=== PATIENT | female | born 1955 | race Caucasian/White ===

== ENCOUNTER → 2017-06-23 13:16 | Outpatient (CLI) | payer OTHER, SELFPAY | PROVIDERS: Family Provider Family Medicine; PCP Family Medicine; Visit Provider Internal Medicine Pulmonary Disease | DX: R05 Cough (principal); R06.00 Dyspnea, unspecified | CPT/HCPCS: 87804 ==

== ENCOUNTER → 2017-09-17 07:44 | Outpatient (CLI) | payer OTHER, SELFPAY ==
--- NOTE | 2017-09-17 07:51 | CT_ITS ---
STUDY: CT CHEST WITHOUT CONTRAST REASON FOR EXAM: Female, 62 years old. The patient has a history of sarcoidosis. Lung lung nodule. RADIATION DOSAGE (If Supplied By Facility): CTDIvol = ( 14.36 ) mGy, DLP = ( 441.26 ) mGycm TECHNIQUE: Transaxial imaging was performed without the administration of intravenous contrast material. Multiplanar coronal and sagittal images were reformatted. Individualized dose optimization techniques were used for this CT. COMPARISON: None. FINDINGS: There is volume loss with scarring and/or infiltration in the medial aspect of the right middle lobe. Mild degree of a groundglass appearance in the posterior aspect of the lingular segment of the left upper lobe. Mild increased markings in the lower lobe suggestive of scarring. There is also evidence of mild bronchiectasis at both lung bases slightly more prominent on the right side. There is no demonstrated pleural abnormality. Normal heart and pericardium. There are multiple small lymph nodes within the mediastinum, which are normal in size and morphology most compatible with reactive lymph hyperplasia. Slight prominence of the right hilar lymph nodes. Normal unenhanced pulmonary arteries. Normal aorta arch and descending thoracic aorta. There are multi-level degenerative changes of the thoracic spine. There is no demonstrated abnormality of the visualized upper abdomen. CT/Chest without Contrast IMPRESSION: Spondylolysis and probable scarring in the right middle lobe with mild increased markings in the lingular segment of the left upper lobe. Findings suggestive of mild scarring at both lung bases. Electronically Signed: Masood Adames MD at 12:54 EDT Tel [phone], Service support ,
== END ==
PROVIDERS: Family Provider Family Medicine; PCP Family Medicine; Visit Provider Internal Medicine Pulmonary Disease
DX: R91.1 Solitary pulmonary nodule (principal)
CPT/HCPCS: 71250

== ENCOUNTER → 2017-12-21 08:38 | Outpatient (CLI) | payer OTHER, SELFPAY ==
--- NOTE | 2017-12-21 08:43 | ECHOD_ITS ---
Reason For Study: DYSPNEA Procedure This was a 2D Doppler, Color Flow transthoracic echocardiogram. The exam was of adequate technical quality. Exam performed in department. Left Ventricle Normal LV size. Left ventricular systolic function is normal. The estimated ejection fraction is 60 %. No evidence for diastolic dysfunction. No regional wall motion abnormalities noted. Right Ventricle Normal RV size. Normal systolic function. Atria The left atrium is mildly enlarged. Normal right atrium. No doppler evidence for ASD. Mitral Valve There is no mitral annular calcification. Normal mitral valve. Mild (1+) mitral valve insufficiency. Tricuspid Valve Normal tricuspid valve. Trivial tricuspid valve insufficiency. Right ventricular systolic pressure estimated to be 21 mmHg. Aortic Valve Trisinus/trileaflet aortic valve. Normal aortic valve. Pulmonic Valve The pulmonic valve is not well visualized. Trivial pulmonic valve insufficiency. Great Vessels Normal sized aortic root. Pericardium/Pleural No pericardial effusion. MMode/2D Measurements & Calculations LVIDd: 4.0 cm IVSd: 0.92 cm Ao root diam: 2.7 cm LVIDs: 2.8 cm LVPWd: 0.98 cm LA dimension: 3.0 cm RVDd: 2.6 cm FS: 29.2 % LAV(MOD-bp): 42.2 ml LVAd ap4: 25.3 cm2 SV(MOD-sp4): 37.0 ml LAV(MOD-bp) Indexed: 24.5 ml/m2 EDV(MOD-sp4): 70.3 ml LAV(MOD-sp2): 37.9 ml EDV(sp4-el): 74.8 ml LAV(MOD-sp4): 46.1 ml LVAs ap4: 14.8 cm2 ESV(MOD-sp4): 33.2 ml ESV(sp4-el): 33.1 ml EF(MOD-sp4): 52.7 % EF(sp4-el): 55.7 % SV(sp4-el): 41.7 ml LA A4 area: 16.6 cm2 RA A4 area: 10.5 cm2 Time Measurements MV dec time: 0.22 sec Doppler Measurements & Calculations MV E max larry: 62.7 cm/sec Lat Peak E' Larry: 10.3 cm/sec Med Peak E' Larry: 8.3 cm/sec MV A max larry: 90.7 cm/sec E/E' lat: 6.1 E/E' med: 7.6 MV E/A: 0.69 Ao V2 max: 139.8 cm/sec PA V2 max: 107.1 cm/sec TR max larry: 213.5 cm/sec Ao max P.8 mmHg TR max P.2 mmHg Interpretation Summary Left ventricular systolic function is normal. The estimated ejection fraction is 60 %. The left atrium is mildly enlarged. Mild (1+) mitral valve insufficiency. Trivial tricuspid valve insufficiency. Trivial pulmonic valve insufficiency. Right ventricular systolic pressure estimated to be 21 mmHg. No evidence for diastolic dysfunction. Ordering Physician: Jorje Burk Referring Physician: HIRAM YOUNG Performed By: Nandini Keller RDCS
== END ==
PROVIDERS: Family Provider Family Medicine; PCP Family Medicine; Visit Provider Internal Medicine Pulmonary Disease
DX: R06.00 Dyspnea, unspecified (principal)
CPT/HCPCS: 93306

== ENCOUNTER → 2018-01-14 10:12 | Outpatient (CLI) | payer OTHER, SELFPAY ==
[2018-01-18 10:53] LABS: Angiotensin Convert Enzyme 49 U/L (14-82)
== END ==
PROVIDERS: Family Provider Family Medicine; PCP Family Medicine; Visit Provider Internal Medicine Pulmonary Disease
DX: D86.9 Sarcoidosis, unspecified (principal)
CPT/HCPCS: 36415; 82164

== ENCOUNTER → 2018-03-28 13:47 | Outpatient (CLI) | payer OTHER, SELFPAY ==
--- NOTE | 2018-03-28 13:51 | RAD_ITS ---
STUDY: X-RAY CHEST REASON FOR EXAM: Female, 62 years old. Sarcoidosis TECHNIQUE: PA and lateral views of the chest. COMPARISON: 07/29/2017 FINDINGS: Stable areas of scarring in the right perihilar region without discrete mass The lungs are clear and expanded. There is no demonstrated pleural abnormality. Normal size heart. Normal mediastinum and kole. Normal visualized pulmonary arteries. Normal visualized aortic arch and descending thoracic aorta. Normal visualized thoracic spine. Normal visualized ribs, clavicles, and shoulders. There is no demonstrated abnormality of the visualized soft tissue structures of the upper abdomen. RAD/Chest PA and Lateral IMPRESSION: No acute findings Electronically Signed: Pranay Man DO at 10:33 EDT Tel , Service support ,
== END ==
PROVIDERS: Family Provider Family Medicine; PCP Family Medicine; Visit Provider Internal Medicine Pulmonary Disease
DX: D86.9 Sarcoidosis, unspecified (principal)
CPT/HCPCS: 71046

== ENCOUNTER → 2018-06-14 11:09 | Outpatient (CLI) | payer OTHER, SELFPAY ==
[2018-06-14 12:34] LABS: Erythrocyte Sedimentation Rate 7 mm/hr (0-30)
--- OUTSIDE RECORDS SUMMARY | 2018-07-31 12:09 | XMS RPT_ITS ---
:1955 Author Organization [place] Care Team Providers Name Role Phone JESUS WILLIS MD Attending Unavailable HIRAM YOUNG MD Primary Care Unavailable Jorje Burk Attending Unavailable Jorje Burk Referring Unavailable Hiram Young Primary Care Unavailable Sibilia, Jorje Attending Unavailable Sibilia, Jorje Referring Unavailable Fracasso, Hiram Primary Care Unavailable Sibilia, Jorje Attending Unavailable Sibilia, Jorje Referring Unavailable Fracasso, Hiram Primary Care Unavailable Sibilia, Ojrje Attending Unavailable Sibilia, Jorje Referring Unavailable Fracasso, Hiram Primary Care Unavailable Sibilia, Jorje Attending Unavailable Sibilia, Jorje Referring Unavailable Fracasso, Hiram Primary Care Unavailable Moodispaw, Hriam Attending Unavailable Sibilia, Jorje Attending Unavailable Sibilia, Jorje Referring Unavailable Fracasso, Hiram Primary Care Unavailable PROBLEMS PROBLEMS DATE TYPE CONDITION / CODE ATTENDING STATUS SOURCE 12/21/2017 Unknown R06.00 - Dyspnea, Sibilia, Jorje Active [facility] unspecified / Community R06.00(ICD-10) Hospital Repository 01/29/2018 Unknown R06.02 - Moodispaw, Hiram Active [facility] Shortness of Community breath / Hospital R06.02(ICD-10) Repository 09/17/2017 Unknown R91.1 - Solitary Sibilia, Jorje Active [place] pulmonary nodule Community / R91.1(ICD-10) Hospital Repository PROCEDURES PROCEDURES No Procedure Records FoundRESULTS RESULTS ERYTHROCYTE SED RATE Collected: 06/14/2018 Status: F Source: [facility] 11:12 AM [facility] REPOSITORY TYPE CODE TESTS RESULT OUT OF RANGE REFERENCE UNITS LAB L102.0000 0-30 mm/hr Normal SED RATE 7 Performed By: #### L101.9900 #### [facility] [address] [facility] [place], [address] CHEST PA AND LATERAL Observed: 03/28/2018 Status: F Source: [facility] 1:52 PM [facility] REPOSITORY [facility] Imaging Services [address] [place] [address] Chest PA and Lateral MR#: [id number] Acct: [id number] Name: VIOLA FREEMAN Nino Rep #: [id number] : 1955 F 62 From: Pranay Man DO PCP: Hir[facility] Young Status: REG CLI Study: Chest PA and Lateral Date of Exam: 03/28/18 Exam# [id number] Ordering Dr: Jorje Burk MD STUDY: X-RAY CHEST REASON FOR EXAM: Female, 62 years old. Sarcoidosis TECHNIQUE: PA and lateral views of the chest. COMPARISON: 07/29/2017 FINDINGS: Stable areas of scarring in the right perihilar region without discrete mass The lungs are clear and expanded. There is no demonstrated pleural abnormality. Normal size heart. Normal mediastinum and kole. Normal visualized pulmonary arteries. Normal visualized aortic arch and descending thoracic aorta. Normal visualized thoracic spine. Normal visualized ribs, clavicles, and shoulders. There is no demonstrated abnormality of the visualized soft tissue structures of the upper abdomen. RAD/Chest PA and Lateral IMPRESSION: No acute findings Electronically Signed: Pranay Man DO at 10:33 EDT Tel , Service support , CC: Hiram Young; Jorje Burk MD Director Of Creative Services: Signed ANGIOTENSIN CONVERT Collected: 01/14/2018 Status: F Source: [facility] ENZYME 10:18 AM [facility] REPOSITORY TYPE CODE TESTS RESULT OUT OF RANGE REFERENCE UNITS LAB L3100.6900 14-82 U/L Normal MAU [id number] Result Comment: Performed at: - [facility] [address] [id number] Director Of Enrollment: Oswaldo Venegas PhD, Phone: [phone] Performed By: #### L3100.6900 #### [facility] (refer to report for specific site) refer to report for address and phone number ECHOCARDIOGRAM COMPLETE Observed: 12/21/2017 Status: F Source: [facility] 1:48 PM [facility] REPOSITORY [facility] Cardiovascular Services [address] [place] [address] Echo Complete 12/21/17 0859 MR#: [id number] Acct: [id number] Name: VIOLA FREEMAN Rep #: [id number] : 1955 62 From: Hiram Moscoso MD Attending Dr: Jorje Burk MD Status: REG CLI Ordering Dr: Jorje Burk MD Date: 12/21/17 Location: [facility] Sex: F C Admitted: Reason For Study: DYSPNEA Procedure This was a 2D Doppler, Color Flow transthoracic echocardiogram. The exam was of adequate technical quality. Exam performed in department. Left Ventricle Normal LV size. Left ventricular systolic function is normal. The estimated ejection fraction is 60 %. No evidence for diastolic dysfunction. No regional wall motion abnormalities noted. Right Ventricle Normal RV size. Normal systolic function. Atria The left atrium is mildly enlarged. Normal right atrium. No doppler evidence for ASD. Mitral Valve There is no mitral annular calcification. Normal mitral valve. Mild (1+) mitral valve insufficiency. Tricuspid Valve Normal tricuspid valve. Trivial tricuspid valve insufficiency. Right ventricular systolic pressure estimated to be 21 mmHg. Aortic Valve Trisinus/trileaflet aortic valve. Normal aortic valve. Pulmonic Valve The pulmonic valve is not well visualized. Trivial pulmonic valve insufficiency. Great Vessels Normal sized aortic root. Pericardium/Pleural No pericardial effusion. MMode/2D Measurements AND Calculations LVIDd: 4.0 cm IVSd: 0.92 cm Ao root diam: 2.7 cm LVIDs: 2.8 cm LVPWd: 0.98 cm LA dimension: 3.0 cm RVDd: 2.6 cm FS: 29.2 % LAV(MOD-bp): 42.2 ml LVAd ap4: 25.3 cm2 SV(MOD-sp4): 37.0 ml LAV(MOD-bp) Indexed: 24.5 ml/m2 EDV(MOD-sp4): 70.3 ml LAV(MOD-sp2): 37.9 ml EDV(sp4-el): 74.8 ml LAV(MOD-sp4): 46.1 ml LVAs ap4: 14.8 cm2 ESV(MOD-sp4): 33.2 ml ESV(sp4-el): 33.1 ml EF(MOD-sp4): 52.7 % EF(sp4-el): 55.7 % SV(sp4-el): 41.7 ml LA A4 area: 16.6 cm2 RA A4 area: 10.5 cm2 Time Measurements MV dec time: 0.22 sec Doppler Measurements AND Calculations MV E max larry: 62.7 cm/sec Lat Peak E' Larry: 10.3 cm/sec Med Peak E' Larry: 8.3 cm/sec MV A max larry: 90.7 cm/sec E/E' lat: 6.1 E/E' med: 7.6 MV E/A: 0.69 Ao V2 max: 139.8 cm/sec PA V2 max: 107.1 cm/sec TR max larry: 213.5 cm/sec Ao max P.8 mmHg TR max P.2 mmHg Interpretation Summary Left ventricular systolic function is normal. The estimated ejection fraction is 60 %. The left atrium is mildly enlarged. Mild (1+) mitral valve insufficiency. Trivial tricuspid valve insufficiency. Trivial pulmonic valve insufficiency. Right ventricular systolic pressure estimated to be 21 mmHg. No evidence for diastolic dysfunction. Ordering Physician: Jorje Burk Referring Physician: HIRAM YOUNG Performed By: Nandini Keller, RDCS 12/21/17 1347 Date Hiram Moscoso MD CC: Hiram Young; Jorje Burk MD Date Dictated: 12/21/17 0859 Date Transcribed: 12/21/17 1347 Director Of Creative Services: Signed MRI HIP W/O CONTRAST Observed: 12/14/2017 Status: F Source: [employer] [facility] 10:00 AM [facility] REPOSITORY ORIGINAL MRI HIP W/O CONTRAST LEFT CLINICAL STATEMENT: Idiopathic aseptic necrosis OF LEFT FEMUR , progressive LEFT hip pain, no history of trauma COMPARISON: None FINDINGS: There is no evidence of avascular necrosis, insufficiency or stress reaction in the proximal femur. There are degenerative type of subchondral bone marrow changes in the anterior acetabular roof. Otherw ise bone marrow signal is normal. There is moderate attenuation of the anterior superior hip joint articular cartilage best seen on the sagittal images. The anterior superior labrum is also irregular in morphology and signal consistent with degenerative type of labral tear. On the coronal images, there is a tiny cyst within the superior labrum. There is a small joint effusion. There is mild trochanteric bursitis. The muscles and tendons around the hip are normal in appearance. There is no evidence of ischiofemoral impingement.. IMPRESSION: No avascular necrosis of the hip is seen. 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 Small joint effusi on. Mild trochanteric bursitis. Interpreted By: Bucky Lloyd MD Preliminary Report By: Bucky Lloyd MD Electronically Signed By: Bucky Lloyd MD Dictated Date: 12/14/2017 9:42:04 PM Prelim Date: 12/14/2017 9:42:04 PM Sign Date: 12/14/2017 9:47:43 PM CHEST WITHOUT Observed: 09/17/2017 Status: F Source: [facility] CONTRAST 7:51 AM [facility] REPOSITORY [facility] Imaging Services [address] [place] [address] Chest without Contrast MR#: [id number] Acct: [id number] Name: VIOLA FREEMAN Rep #: [id number] : 1955 F 62 From: Masood Adames MD PCP: Hiram Young Status: REG CLI Study: Chest without Contrast Date of Exam: 09/17/17 Exam# [id number] Ordering Dr: Jorje Burk MD STUDY: CT CHEST WITHOUT CONTRAST REASON FOR EXAM: Female, 62 years old. The patient has a history of sarcoidosis. Lung lung nodule. RADIATION DOSAGE (If Supplied By Facility): CTDIvol = ( 14.36 ) mGy, DLP = ( 441.26 ) mGycm TECHNIQUE: Transaxial imaging was performed without the administration of intravenous contrast material. Multiplanar coronal and sagittal images were reformatted. Individualized dose optimization techniques were used for this CT. COMPARISON: None. FINDINGS: There is volume loss with scarring and/or infiltration in the medial aspect of the right middle lobe. Mild degree of a groundglass appearance in the posterior aspect of the lingular segment of the left upper lobe. Mild increased markings in the lower lobe suggestive of scarring. There is also evidence of mild bronchiectasis at both lung bases slightly more prominent on the right side. There is no demonstrated pleural abnormality. Normal heart and pericardium. There are multiple small lymph nodes within the mediastinum, which are normal in size and morphology most compatible with reactive lymph hyperplasia. Slight prominence of the right hilar lymph nodes. Normal unenhanced pulmonary arteries. Normal aorta arch and descending thoracic aorta. There are multi-level degenerative changes of the thoracic spine. There is no demonstrated abnormality of the visualized upper abdomen. CT/Chest without Contrast IMPRESSION: Spondylolysis and probable scarring in the right middle lobe with mild increased markings in the lingular segment of the left upper lobe. Findings suggestive of mild scarring at both lung bases. Electronically Signed: Masood Adames MD at 12:54 EDT Tel [phone], Service support , CC: Hiram Young; Jorje Burk MD Director Of Creative Services: Signed CHEST PA AND LATERAL Observed: 07/29/2017 Status: F Source: [facility] 8:10 AM [facility] REPOSITORY [facility] Imaging Services [address] [place] [address] Chest PA and Lateral MR#: [id number] Acct: [id number] Name: VIOLA FREEMAN Rep #: [id number] : 1955 F 62 From: Masood Adames MD PCP: Hiram Young Status: REG CLI Study: Chest PA and Lateral Date of Exam: 07/29/17 Exam# [id number] Ordering Dr: Jorje Burk MD STUDY: X-RAY CHEST REASON FOR EXAM: Female, 62 years old. History of sarcoidosis. TECHNIQUE: PA and lateral views of the chest. COMPARISON: Comparison is made with prior study dated June 23, 2017. FINDINGS: Persistent infiltration in the right middle lobe. This has progressed as compared to prior study. Stable increased markings in the left lower lobe. There is no demonstrated pleural abnormality. Normal size heart. Normal mediastinum and kole. Normal visualized pulmonary arteries. There is atherosclerotic tortuosity of the aortic arch and descending thoracic aorta. Normal visualized thoracic spine. Normal visualized ribs, clavicles, and shoulders. There is no demonstrated abnormality of the visualized soft tissue structures of the upper abdomen. RAD/Chest PA and Lateral IMPRESSION: Progressive infiltration in the right middle lobe. Stable appearance of the left lower lobe. Electronically Signed: Masood Adames MD at 10:44 EST Tel [phone], Service support , CC: Hiram Young; Jorje Burk MD Director Of Creative Services: Signed ERYTHROCYTE SED RATE Collected: 07/29/2017 Status: F Source: [place] 8:03 AM [facility] REPOSITORY TYPE CODE TESTS RESULT OUT OF RANGE REFERENCE UNITS LAB L102.0000 0-30 mm/hr Normal SED RATE 4 Performed By: #### L101.9900 #### [facility] [address] [place], [address] ALLERGIES ALLERGIES DATE TYPE / CODE NAME / CODE REACTION SEVERITY SOURCE 06/23/2017 Drug No Known Unknown [facility] Allergy/4160 Allergies/F00 Hospital 46882(SNOMED 8974453(RXNOR Repository CT) M) ENCOUNTERS ENCOUNTERS ADMIT/DISCHARGE ACCOUNT NUMBER ADMITTING ENCOUNTER LOCATION SOURCE CLASS 06/14/[id number] [facility] ding:LAB Repository 03/28/2018 [id number] Ambulatory General acute hospital ding:MTLAB Repository 01/14/2018 [id number] Ambulatory General acute hospital ding:LAB Repository 12/21/2017 [id number] Ambulatory General acute hospital ding:[facility] Repository 12/21/2017 [id number] Ambulatory [facility]MS[facility]: [facility] Repository 12/14/2017/12/15/19 [id number] Ambulatory [address] ding:[facility] Repository 09/17/2017 [id number] Ambulatory General acute hospital ding:CT Repository 07/29/2017 [id number] Ambulatory General acute hospital ding:LAB Repository PAYERS PAYERS ENCOUNTER GUARANTOR PAYER SUBSCRIBER SOURCE 06/14/2018 BEBO [id number] Primary BEBO ARCHULETA: [facility] [place] Insurance:[facility] [id number] [address] [address]Omh: 330) Number: Repository [phone] (DC) [id number] Date:6595-22-54IO [address], [place] [address]CA: 06/14/2018 Secondary BEBO BARAJASATTDOB: [place] Insurance:STANDARD [id number] Number: Repository [id number] Date:4021-83-95AE [address] [address]SL: 06/14/2018 Tertiary NOT GIVENUNK [facility] Insurance:SELF PAY [facility] Number: Effective Repository Date:2018-06-14 03/28/2018 BEBO [id number] Primary BEBO BARAJASATTDOB: [facility] [place] Insurance:[facility] [id number] [address]Tel: (330) Number: Repository [phone] () [id number] Date:3425-09-01QM [address], [place] [address]WN: 03/28/2018 Secondary BEBO BARAJASATTDOB: [facility] Insurance:STANDARD [id number] Medical Center [facility] Number: Repository [id number] Date:6027-26-95RR [address] [address]IF: 03/28/2018 Tertiary NOT GIVENUNK [place] Insurance:SELF PAY [facility] Number: Effective Repository Date:2018-03-28 01/14/2018 BEBO [id number] Primary BEBO BARAJASATTDOB: [facility] [place] Insurance:[facility] [id number] [address]Tel: (330) Number: Repository [phone] () [id number] Date:5323-04-41YB [address], [place] [address]OI: 01/14/2018 Secondary BEBO BARAJASATTDOB: [place] Insurance:STANDARD [id number] Number: Repository [id number] Date:7613-72-61WN [address] [address]EP: 01/14/2018 Tertiary NOT GIVENUNK [place] Insurance:SELF PAY [facility] Number: Effective Repository Date:2018-01-14 12/21/2017 BEBO [id number] Primary BEBO WYATTDOB: [facility] [place] Insurance:[facility] [id number] [address]Ldp: (330) Number: Repository [phone] () [id number] Date:1244-40-22EE [facility] [address] [place] [address]TT: 12/21/2017 Secondary BEBO WYATTDOB: [facility] Insurance:STANDARD [id number] [facility] Number: Repository [id number] Date:3022-46-44MP [address] [address]KFIBHQLMS REJI [address]MS: 12/21/2017 Tertiary NOT GIVENUNK [facility] Insurance:SELF PAY [facility] Number: Effective Repository Date:2017-12-03 12/21/2017 BEBO [id number] Primary BEBO BARAJASATTDOB: [place] Insurance:[facility] [id number] [place] [id number]: (330) Number: Repository [phone] () [id number] Date:2663-15-19LW [facility] [address]GRFF[place]XN, [place] [address]DB: 12/21/2017 Secondary BEBO BARAJASATTDOB: [place] Insurance:STANDARD [id number] Medical Center Hospital Number: Repository [id number] Date:5918-68-88OM [address] [address]YF: 12/21/2017 Tertiary NOT GIVENUNK [place] Insurance:SELF PAY [facility] Number: Effective Repository Date:2017-12-21 12/14/2017 VIOLA Oneill Primary BEBO BARAJASATTDOB: [facility] WYATTDOB: Insurance:[place] [id number] [facility] [id number] [facility] 8 [place] Repository [place] [address]Ecwwus Number: JESSICA RODRIGUEZ [place] [id number] [address]Byu: [phone] Date:2017-12-067997-99-00Baev ()Tel: ([phone]) Name:[facility] [address] () [place], [place] [address]KS: 12/14/2017 Secondary BEBO SIMONB: [facility] Insurance:STANDARD [id number] [facility]MENTPol[facility] 8 [place] Repository Number: JESSICA RODRIGUEZ [id number] [address]Oly: (797) Date:2017-12-062045-29-66Hqkz ()Tel: (768) Name:[facility] [address] () [address]17[address]ESQF, [place] [address]HU: 09/17/2017 BEBO FREEMAN9858 Primary BEBO SIMONB: [place] Insurance:[facility] [id number] [address]Niy: (216) Number: Repository [phone] () [id number] Date:2281-26-51LF [address]CWFQJ, [place] [address]JT: 09/17/2017 Secondary BEBO SIMONB: [place] Insurance:STANDARD [id number] [facility] Number: Repository [id number] Date:0905-72-38WX [address] [address]KHTQGEH, [address]HA: 09/17/2017 Tertiary NOT GIVENUNK [place] Insurance:SELF PAY [facility] Number: Effective Repository Date:2017-08-05 07/29/2017 BEBO [id number] Primary BEBO SIMONB: [place] Insurance:[facility] [id number] [address]Tyb: (330) Number: Repository [phone] [place] [id number] Date:0258-02-17QP [address]GGYMDVK, [place] [address]VY: 07/29/2017 Secondary BEBO GEREMIAS: [place] Insurance:STANDARD [id number] Surgical Hospital Number: Repository [id number] Date:0356-11-54BA [address] [address]I, [address]LU: 07/29/2017 Tertiary NOT GIVENUNK [place] Insurance:SELF PAY [facility] Number: Effective Repository Date:2017-07-29
== END ==
PROVIDERS: Family Provider Family Medicine; PCP Family Medicine; Referring Provider Internal Medicine Pulmonary Disease; Visit Provider Internal Medicine Pulmonary Disease
DX: D86.9 Sarcoidosis, unspecified (principal)
CPT/HCPCS: 36415; 85652

== ENCOUNTER → 2018-08-08 10:36 | Outpatient (CLI) | payer SELFPAY ==
--- NOTE | 2018-08-08 10:46 | RAD_ITS ---
STUDY: X-RAY CHEST REASON FOR EXAM: Female, 63 years old. Short of breath history of sarcoidosis. TECHNIQUE: Frontal and lateral views of the chest. COMPARISON: Chest x-ray 06/14/2017, CT scan 09/17/2017, chest x-ray 03/28/2018.. FINDINGS: No definite change. Normal lung volumes. Continued irregular increased density related to the right hilum and in the medial right middle lobe, consistent with scarring and chronic atelectasis. Left lung is clear. No effusions. Normal size heart. Normal mediastinum and kole. Normal visualized pulmonary arteries. Normal visualized aortic arch and descending thoracic aorta. Normal visualized thoracic spine. Normal visualized ribs, clavicles, and shoulders. There is no demonstrated abnormality of the visualized soft tissue structures of the upper abdomen. RAD/Chest PA and Lateral IMPRESSION: No change. No acute chest disease. Stable chronic findings of the right hilum and right middle lobe. Electronically Signed: Everett Saenz MD at 21:49 EST , Service support ,
== END ==
PROVIDERS: Family Provider Family Medicine; PCP Family Medicine; Referring Provider Internal Medicine Pulmonary Disease; Visit Provider Internal Medicine Pulmonary Disease
DX: D86.9 Sarcoidosis, unspecified (principal); R06.00 Dyspnea, unspecified
CPT/HCPCS: 71046

== ENCOUNTER → 2018-12-08 | Outpatient (CLI) | payer SELFPAY ==
[2018-12-08 11:14] LABS: Erythrocyte Sedimentation Rate 10 mm/hr (0-30)
[2018-12-08 12:31] LABS: CRP 6.47 mg/L (0.0-3.0)
[2018-12-11 13:57] LABS: Angiotensin Convert Enzyme 68 U/L (14-82)
== END | disposition home or self-care (01) ==
PROVIDERS: Family Provider Family Medicine; PCP Family Medicine; Referring Provider Internal Medicine Pulmonary Disease; Visit Provider Internal Medicine Pulmonary Disease
DX: D86.9 Sarcoidosis, unspecified (principal)
CPT/HCPCS: 36415; 82164; 85652; 86140

== ENCOUNTER → 2019-04-04 07:35 | Outpatient (CLI) | payer SELFPAY ==
[2019-04-04 07:50] VITALS: BP 166/92; PULSE 67; RESP 16; TEMP 36.3; O2SAT 99; BMI 32.5
[2019-04-04] MEDS: Cosyntropin 0.25 MG Vial IM (08:09)
== END ==
PROVIDERS: Family Provider Family Medicine; PCP Family Medicine; Referring Provider Internal Medicine Pulmonary Disease; Visit Provider Internal Medicine Pulmonary Disease
DX: Z79.899 Other long term (current) drug therapy (principal)
CPT/HCPCS: 36415; 82533; 96372; J0834

== ENCOUNTER → 2019-08-16 16:10 | Outpatient (CLI) | payer SELFPAY ==
[2019-04-04 07:50] VITALS: BMI 32.5
--- NOTE | 2019-08-16 16:20 | RAD_ITS ---
STUDY: X-RAY CHEST REASON FOR EXAM: Female, 64 years old. Cough and wheezing for one month. Recent bronchitis. History of sarcoid. TECHNIQUE: PA and lateral views of the chest. COMPARISON: August 08, 2018. FINDINGS: The lungs are well-expanded. There is increasing density in the right middle lobe along the underside of the horizontal fissure. There is an associated increase in the right hilum. There is a new infiltrate in the left lower lobe extending off the posterior aspect of the left hilum There is no demonstrated pleural abnormality. Normal size heart. Normal mediastinum. There is bilateral hilar prominence slightly increased on the right. Normal visualized pulmonary arteries. Normal visualized aortic arch and descending thoracic aorta. No visualized osseous changes. There is no demonstrated abnormality of the visualized soft tissue structures of the upper abdomen. RAD/Chest PA and Lateral IMPRESSION: 1. Enlarging right hilum with worsening right middle lobe infiltrate when compared to prior study. 2. New left lower lobe infiltrate. Electronically Signed: Miguel Fernando DO at 20:11 EST Tel [phone], Service support ,
[2019-08-16 17:30] LABS: Erythrocyte Sedimentation Rate 23 mm/hr (0-30)
[2019-08-18 16:48] LABS: Angiotensin Convert Enzyme 69 U/L (14-82)
== END ==
PROVIDERS: PCP Family Medicine; Referring Provider Internal Medicine Pulmonary Disease; Visit Provider Internal Medicine Pulmonary Disease
DX: R05 Cough (principal); D86.9 Sarcoidosis, unspecified
CPT/HCPCS: 36415; 71046; 82164; 85652; 86140

== ENCOUNTER → 2019-09-18 10:18 | Outpatient (CLI) | payer SELFPAY ==
[2019-04-04 07:50] VITALS: BMI 32.5
--- NOTE | 2019-09-18 10:28 | RAD_ITS ---
STUDY: X-RAY CHEST REASON FOR EXAM: Female, 64 years old. sarcoid TECHNIQUE: PA and lateral views of the chest. COMPARISON: . FINDINGS: There is bilateral perihilar atelectasis and scarring, remainder of the lungs are clear and expanded. There is no demonstrated pleural abnormality. Normal size heart. Normal mediastinum and kole. Normal visualized pulmonary arteries. There is atherosclerotic tortuosity of the aortic arch and descending thoracic aorta. There are diffuse degenerative changes of the visualized thoracic spine. There is degenerative osteoarthritis of the bilateral shoulders. There is no demonstrated abnormality of the visualized soft tissue structures of the upper abdomen. RAD/Chest PA and Lateral IMPRESSION: Bilateral perihilar atelectasis and scarring, otherwise no acute cardiopulmonary disease. Electronically Signed: Elissa Mccullough MD at 0:33 EDT , Service support ,
== END ==
PROVIDERS: PCP Family Medicine; Referring Provider Internal Medicine Pulmonary Disease; Visit Provider Internal Medicine Pulmonary Disease
DX: D86.9 Sarcoidosis, unspecified (principal)
CPT/HCPCS: 36415; 71046; 86140

== ENCOUNTER → 2020-01-04 10:25 | Outpatient (CLI) | payer SELFPAY ==
[2019-04-04 07:50] VITALS: BMI 32.5
[2020-01-09 01:54] LABS: Angiotensin Convert Enzyme 56 U/L (14-82)
== END ==
PROVIDERS: PCP Family Medicine; Referring Provider Internal Medicine Pulmonary Disease; Visit Provider Internal Medicine Pulmonary Disease
DX: D86.9 Sarcoidosis, unspecified (principal)
CPT/HCPCS: 36415; 82164; 86140

== ENCOUNTER → 2020-10-16 13:22 | Outpatient (CLI) | payer SELFPAY ==
[2019-04-04 07:50] VITALS: BMI 32.5
[2020-10-16 15:30] LABS: CRP 4.78 mg/L (0.0-3.0)
[2020-10-16 16:04] LABS: Erythrocyte Sedimentation Rate 9 mm/hr (0-30)
[2020-10-18 17:20] LABS: Angiotensin Convert Enzyme 57 U/L (14-82)
== END ==
PROVIDERS: PCP Family Medicine; Referring Provider Internal Medicine Pulmonary Disease; Visit Provider Internal Medicine Pulmonary Disease
DX: D86.9 Sarcoidosis, unspecified (principal); R06.00 Dyspnea, unspecified
CPT/HCPCS: 36415; 82164; 85652; 86140

== ENCOUNTER 2021-08-15 07:28 | Outpatient (CLI) | payer MEDICARE, OTHER, SELFPAY ==
[2021-08-15 07:41] VITALS: BP 153/76; PULSE 79; RESP 16; TEMP 35.9; O2SAT 97; BMI 32.5
[2021-08-15] MEDS: Cosyntropin 0.25 MG Vial IM (07:55)
== END 2021-08-15 23:59 | disposition home or self-care (01) ==
LOC: MEDOUTP 07:31
PROVIDERS: PCP Family Medicine; Referring Provider Internal Medicine Pulmonary Disease; Visit Provider Internal Medicine Pulmonary Disease
DX: Z79.899 Other long term (current) drug therapy (principal)
CPT/HCPCS: 36415; 82533; 96372; J0834

== ENCOUNTER 2021-09-11 09:21 | Outpatient (CLI) | payer MEDICARE, OTHER, SELFPAY ==
[2021-09-11 12:22] LABS: Erythrocyte Sedimentation Rate 22 mm/hr (0-30)
[2021-09-11 13:11] LABS: CRP, High Sensitivity Cardiac 9.83 mg/L
[2021-09-12 22:10] LABS: Angiotensin Convert Enzyme 63 U/L (14-82)
== END 2021-09-11 23:59 | disposition home or self-care (01) ==
LOC: MTLAB 09:23
PROVIDERS: PCP Family Medicine; Referring Provider Internal Medicine Pulmonary Disease; Visit Provider Internal Medicine Pulmonary Disease
DX: D86.0 Sarcoidosis of lung (principal); R06.00 Dyspnea, unspecified
CPT/HCPCS: 36415; 82164; 85652; 86141

== ENCOUNTER → 2022-03-12 | Outpatient (CLI) | payer MEDICARE, OTHER, SELFPAY ==
[2022-03-12 10:07] LABS: Erythrocyte Sedimentation Rate 30 mm/hr (0-30)
[2022-03-14 16:37] LABS: Angiotensin Convert Enzyme 85 U/L (14-82)
== END | disposition home or self-care (01) ==
LOC: MTLAB 09:10
PROVIDERS: PCP Family Medicine; Referring Provider Internal Medicine Pulmonary Disease; Visit Provider Internal Medicine Pulmonary Disease
DX: D86.0 Sarcoidosis of lung (principal)
CPT/HCPCS: 36415; 82164; 85652; 86140

== ENCOUNTER → 2022-05-05 | Outpatient (CLI) | payer MEDICARE, OTHER, SELFPAY ==
--- NOTE | 2022-05-05 11:27 | RAD_ITS ---
INDICATION: Sarcoidosis of lung EXAMINATION: Frontal view of the chest COMPARISON: Chest x-ray from September 18, 2019. FINDINGS: Frontal view of the chest was obtained. The cardiac silhouette is not enlarged. Perihilar scarring and atelectasis is similar to the prior exam. No pneumothorax. RAD/Chest PA and Lateral IMPRESSION: Bilateral perihilar atelectasis and scarring, similar to the prior exam. Electronically Signed: Simon Carranza MD at 3:35 EDT ,
[2022-05-05 16:01] LABS: Erythrocyte Sedimentation Rate 35 mm/hr (0-30)
[2022-05-07 16:12] LABS: Angiotensin Convert Enzyme 52 U/L (14-82)
== END | disposition home or self-care (01) ==
PROVIDERS: PCP Family Medicine; Referring Provider Internal Medicine Pulmonary Disease; Visit Provider Internal Medicine Pulmonary Disease
DX: J98.11 Atelectasis (principal); D86.0 Sarcoidosis of lung
CPT/HCPCS: 36415; 71046; 82164; 85652; 86140

== ENCOUNTER → 2022-06-17 | Outpatient (CLI) | payer MEDICARE, OTHER, SELFPAY ==
[2022-06-17 10:35] LABS: Rheumatoid Factor < 10.0 IU/mL (<15)
[2022-06-19 10:25] LABS: ANTINUCLEAR ANTIBODIES DIRECT Negative (Negative); Anti-dsDNA Ab 1 IU/mL (0-9)
[2022-06-19 10:57] LABS: Angiotensin Convert Enzyme 85 U/L (14-82)
== END | disposition home or self-care (01) ==
LOC: MTLAB 08:59
PROVIDERS: Visit Provider Internal Medicine Pulmonary Disease
DX: M25.50 Pain in unspecified joint (principal); D86.0 Sarcoidosis of lung; R06.00 Dyspnea, unspecified
CPT/HCPCS: 36415; 82164; 86038; 86225; 86431

== ENCOUNTER → 2022-12-30 | Outpatient (CLI) | payer MEDICARE, OTHER, SELFPAY ==
[2022-12-30 11:11] LABS: Erythrocyte Sedimentation Rate 22 mm/hr (0-30)
[2022-12-30 11:18] LABS: CRP 8.42 mg/L (0.0-3.0)
[2022-12-31 14:09] LABS: Angiotensin Convert Enzyme 91 U/L (14-82)
== END | disposition home or self-care (01) ==
LOC: MTLAB 08:08
PROVIDERS: Referring Provider Internal Medicine Pulmonary Disease; Visit Provider Internal Medicine Pulmonary Disease
DX: R09.02 Hypoxemia (principal); R06.00 Dyspnea, unspecified
CPT/HCPCS: 36415; 82164; 85652; 86140

== ENCOUNTER → 2023-01-25 | Outpatient (CLI) | payer MEDICARE, OTHER, SELFPAY ==
--- NOTE | 2023-01-25 13:00 | CT_ITS ---
STUDY: CT CHEST WITHOUT CONTRAST REASON FOR EXAM: Female, 67 years old. SARCOIDOSIS OF LUNG RADIATION DOSAGE (If Supplied By Facility): CTDIvol = ( 9.93 ) mGy, DLP = ( 341.15 ) mGycm TECHNIQUE: Transaxial imaging was performed without the administration of intravenous contrast material. Individualized dose optimization techniques were used for this CT. COMPARISON: Comparison is made with prior study dated September 17, 2017. FINDINGS: CHEST There now is evidence of marked collapse of the right middle lobe. Increased markings in the lower lobes worse at the left lung base with bronchiectasis suggestive of scarring. Mild scarring is also seen in the lingular segment of the left upper lobe. Stable 1 cm spiculated nodule in the upper medial aspect of the right upper lobe. This most likely is secondary to scarring. Tiny noncalcified nodules are seen at the left lung base. There is no demonstrated pleural abnormality. Mild degree of coronary artery calcification. There are multiple small lymph nodes within the mediastinum, which are normal in size and morphology most compatible with reactive lymph hyperplasia. Normal hilar regions. Normal unenhanced pulmonary arteries. Normal aorta arch and descending thoracic aorta. There are multi-level degenerative changes of the thoracic spine. There is no demonstrated abnormality of the visualized upper abdomen. CT/Chest without Contrast IMPRESSION: Collapse of the right middle lobe as compared to prior study. The remainder of the examination is unchanged. Electronically Signed: Masood Adames MD at 15:44 EDT ,
== END | disposition home or self-care (01) ==
LOC: CT 12:59
PROVIDERS: Referring Provider Internal Medicine Pulmonary Disease; Visit Provider Internal Medicine Pulmonary Disease
DX: D86.0 Sarcoidosis of lung (principal)
CPT/HCPCS: 71250

== ENCOUNTER → 2023-03-22 | Outpatient (CLI) | payer MEDICARE, OTHER, SELFPAY ==
--- NOTE | 2023-03-22 10:16 | RAD_ITS ---
STUDY: X-RAY CHEST REASON FOR EXAM: Female, 67 years old. Sarcoidosis of lung TECHNIQUE: PA and lateral views of the chest. COMPARISON: Comparison is made with prior study dated May 05, 2022. FINDINGS: Stable prominence of the right hilum with increased markings in the perihilar region on the right side as well as at the right lung base. Mild increased markings in the posterior medial segment of the left lower lobe. Normal size heart. Normal mediastinum and kole. Normal visualized pulmonary arteries. There is atherosclerotic tortuosity of the aortic arch and descending thoracic aorta. There are mild degenerative changes of the visualized thoracic spine. Normal visualized ribs, clavicles, and shoulders. There is no demonstrated abnormality of the visualized soft tissue structures of the upper abdomen. RAD/Chest PA and Lateral IMPRESSION: Stable examination. Electronically Signed: Masood Adames MD at 8:43 EDT ,
== END | disposition home or self-care (01) ==
PROVIDERS: Referring Provider Internal Medicine Pulmonary Disease; Visit Provider Internal Medicine Pulmonary Disease
DX: D86.0 Sarcoidosis of lung (principal)
CPT/HCPCS: 71046

== ENCOUNTER → 2024-12-07 | Outpatient (CLI) | payer MEDICARE, OTHER, SELFPAY ==
--- NOTE | 2024-12-07 09:04 | RAD_ITS ---
PROCEDURE: CHEST PA AND LATERAL 12/07/2024 REASON FOR EXAM: Dyspnea. History of sarcoidosis. TECHNIQUE: Frontal and lateral views of the chest. COMPARISON: Two-view chest, 03/22/2023. FINDINGS: There is chronic right middle lobe atelectasis. There is mild chronic interstitial lung disease. There is no lobar consolidation or pleural effusion. The heart size is normal. There is calcific vascular disease of the thoracic aorta. The upper abdominal bowel gas pattern is normal. There are no significant bony abnormalities of the chest. RAD/Chest PA and Lateral IMPRESSION: Chronic interstitial lung disease and chronic right middle lobe atelectasis. Reading Location: [id number]
== END | disposition home or self-care (01) ==
LOC: MTRAD 09:02
PROVIDERS: Referring Provider Internal Medicine Pulmonary Disease; Visit Provider Internal Medicine Pulmonary Disease
DX: R06.00 Dyspnea, unspecified (principal); J98.11 Atelectasis
CPT/HCPCS: 71046